=== PATIENT | male | born 1955 | race Caucasian/White ===

== ENCOUNTER 2016-12-06 13:27 | Emergency (ER) | payer SELFPAY ==
[2016-12-06] MEDS ORDERED: HYDROmorphone HCL INJ 2 MG/ML VIAL IM ONE (13:44)
--- NOTE | 2016-12-06 13:47 | ED.PDOC ---
History of Present Illness - General Chief Complaint: Burn Stated Complaint: Burnt R hand on tractor exhaust Time Seen by Provider: 12/06/16 13:44 Source: patient, RN notes reviewed, Vital Signs reviewed Exam Limitations: no limitations - History of Present Illness Initial Comments: Patient comes in with c/o an extremely painful burn on the palm of his R hand and palmar aspect of fingers. He was getting up on a tractor and accidentally grabbed the hot exhaust pipe. Timing/Duration: just prior to arrival Severity: moderate Location: hands - Palmar aspect of R hand Improving Factors: cold therapy - Ice Worsening Factors: nothing Associated Symptoms: blisters, change in skin texture Allergies/Adverse Reactions: Allergies NO KNOWN ALLERGY Allergy (Verified 12/06/16 13:43) Home Medications: Ambulatory Orders Acetamin W/Cod #3 Tab [Tylenol w/CODEINE #3] 1 - 2 ea PO Q4HR PRN #20 tab Silver Sulfadiazine [Silvadene] 2 - 3 gm TOP BID #50 gm 12/06/16 Review of Systems - Review of Systems Constitutional: States: no symptoms reported Respiratory: States: no symptoms reported Cardiology: States: no symptoms reported Musculoskeletal: States: no symptoms reported Skin: States: see HPI Neurological: States: no symptoms reported All other Systems: No Change from Baseline Family Medical History - Family History Father Living Status: Hx Family Cancer: Yes - prostate Physical Exam - Physical Exam General Appearance: Alert, Obvious distress, Well Developed, Well Groomed, Well Hydrated, Well Nourished Respiratory: no respiratory distress Extremity: normal range of motion Neurologic: no motor/sensory deficits, alert, normal mood/affect, oriented x 3 Skin Exam: warm/dry, normal color Skin Problem Location: upper extremities - Palmar aspect of R hand Skin Character: erythema, swelling, other - R hand: erythema with blistering on R palm and fingers. Total burn surface 1.5% Progress - Progress Progress: 12/06/16 14:31 Hand dressed with Silvadene Dilaudid 1mg IM given Departure - Departure Clinical Impression: Second degree burn of right hand and fingers Qualifiers: Encounter type: initial encounter Qualified Code(s): T23.201A - Burn of second degree of right hand, unspecified site, initial encounter; T23.231A - Burn of second degree of multiple right fingers (nail), not including thumb, initial encounter Time of Disposition: 14:32 Disposition: Discharge to Home or Self Care Condition: Good Instructions: DI for [facility] Diet: resume usual diet Activity: increase activity as tolerated Referrals: SIOMARA DARNELL [Affiliate Staff] - 1-2 Weeks Prescriptions: Acetamin W/Cod #3 Tab [Tylenol w/CODEINE #3] 1 - 2 ea PO Q4HR PRN #20 tab PRN Reason: Moderate To Severe Pain Silver Sulfadiazine [Silvadene] 2 - 3 gm TOP BID #50 gm Home Medications: Ambulatory Orders Acetamin W/Cod #3 Tab [Tylenol w/CODEINE #3] 1 - 2 ea PO Q4HR PRN #20 tab Silver Sulfadiazine [Silvadene] 2 - 3 gm TOP BID #50 gm 12/06/16
[2016-12-06] MEDS ORDERED: SILVER SULFADIAZINE 1 % 25 GM TUBE TOP ONE (14:12)
[2016-12-06 14:19] VITALS: TEMP 98.4
[2016-12-06 15:01] VITALS: BP 156/111; O2SAT 95
== END 2016-12-06 14:58 | disposition home or self-care (01) ==
LOC: ER 13:27
DX: T23.251A Burn of second degree of right palm, initial encounter (principal); T23.231A Burn of second degree of multiple right fingers (nail), not including thumb, initial encounter; T31.0 Burns involving less than 10% of body surface; X19.XXXA Contact with other heat and hot substances, initial encounter; Y92.9 Unspecified place or not applicable